=== PATIENT | female | born 1960 | race Caucasian/White ===

== ENCOUNTER 2018-04-26 17:05 | Emergency (ER) | payer SELFPAY ==
[~2018-04-26] VITALS: Ht 160 cm; Wt 56.2 kg
[2018-04-26 17:43] VITALS: BP 141/86
== END 2018-04-26 18:40 | disposition home or self-care (01) ==
LOC: ED 17:05
DX: H60.93 Unspecified otitis externa, bilateral (principal); M26.609 Unspecified temporomandibular joint disorder, unspecified side; F41.9 Anxiety disorder, unspecified

== ENCOUNTER 2018-05-24 10:01 | Emergency (ER) | payer SELFPAY ==
[~2018-05-24] VITALS: Ht 154.9 cm; Wt 54.0 kg
[2018-05-24 10:11] VITALS: Ht 154.9 cm; Wt 54.0 kg
[2018-05-24 12:30] VITALS: BP 128/88
== END 2018-05-24 12:30 | disposition home or self-care (01) ==
LOC: ED 10:01
DX: F41.9 Anxiety disorder, unspecified (principal); I95.1 Orthostatic hypotension
CPT/HCPCS: Q0162

== ENCOUNTER 2018-05-27 04:04 | Emergency (ER) | payer SELFPAY ==
[~2018-05-27] VITALS: Ht 162.6 cm; Wt 52.2 kg
[2018-05-27 04:10] VITALS: Ht 162.6 cm; Wt 52.2 kg
[2018-05-27 05:25] LABS: BASOPHIL % 0.4 % (0-2)
[2018-05-27 05:28] LABS: PLATELET COUNT 438 x10^3mcL (130-400)
[2018-05-27 05:36] LABS: CARBON DIOXIDE 27.5 mmol/L (21-32); CHLORIDE SERUM 95 mmol/L (98-107); CREATININE SERUM 0.7 mg/dL (0.6-1.0); GFR1 > 60 mL/min; GLUCOSE SERUM 88 mg/dL (74-106); SODIUM SERUM 130 mmol/L (136-145)
[2018-05-27 05:40] LABS: ALBUMIN 4.2 g/dL (3.4-5.0); ALKALINE PHOSPHATASE 98 U/L (46-116); ALT/SGPT 44 U/L (14-59); AST/SGOT 16 U/L (15-37); BILIRUBIN TOTAL 0.77 mg/dL (0.20-1.00); LIPASE 156 IU/L (73-393); TOTAL PROTEIN, SERUM 7.2 g/dL (6.4-8.2)
[2018-05-27 07:43] VITALS: BP 129/89
== END 2018-05-27 07:43 | disposition home or self-care (01) ==
LOC: ED 04:04
PROVIDERS: Emergency Medicine
DX: R68.84 Jaw pain (principal)
CPT/HCPCS: 36415

== ENCOUNTER 2018-06-07 08:47 | Emergency (ER) | payer SELFPAY ==
[~2018-06-07] VITALS: Ht 162.6 cm; Wt 51.3 kg
[2018-06-07 08:53] VITALS: Ht 162.6 cm; Wt 51.3 kg
[2018-06-07 09:49] VITALS: BP 148/99
== END 2018-06-07 09:49 | disposition home or self-care (01) ==
LOC: ED 08:47
DX: K62.5 Hemorrhage of anus and rectum (principal); K59.00 Constipation, unspecified; F41.9 Anxiety disorder, unspecified; K64.8 Other hemorrhoids; Z87.19 Personal history of other diseases of the digestive system